=== PATIENT | female | born 1975 | race Caucasian/White ===

== ENCOUNTER 2024-11-06 09:36 | Outpatient (AMB) | payer BC, SELFPAY ==
--- NOTE | 2024-11-06 09:54 | MHC.OFFVIS ---
Vital Signs 11/06/24 09:58 Height 5 ft 4.17 in Weight 126 lb 8.725 oz BMI 21.6 BP 138/78 Blood Pressure Location Rt brachial Position Sitting Pulse 91 Pulse Source Pulse Oximeter Pulse Oximetry (%) 96 Oxygen Delivery Method Room Air Intake Visit Reasons: Graves disease-ok per Intake Note: New patient externally referred by PCP for Graves Disease. Bottom Precipitator Operator Required: No Accompanied by: Self / Same As Patient Allergies Sulfa (Sulfonamide Antibiotics) Allergy (Unknown, Verified 11/06/24 09:58) SOB, Rash Penicillins Allergy (Verified 11/06/24 09:58) Anaphylaxis morphine Adverse Reaction (Unknown, Verified 11/06/24 09:58) Unknown esomeprazole (From Nexium) Adverse Reaction (Verified 11/06/24 09:58) muscle weakness Erythromycin Adverse Reaction (Uncoded 11/06/24 09:58) GI symptoms Medication List - Last Reconciled 11/06/24 by Jose Ngo MD levothyroxine (Synthroid) 125 mcg PO DAILY norethindrone-e.estradiol-iron 1 mg-10 mcg (24)/10 mcg (2) (Lo Loestrin Fe) 1 tab PO DAILY rimegepant (Nurtec ODT) mg PO trazodone 50 mg PO BEDTIME HPI Comments Details: The patient is a 49-year-old female presenting with concerns of ?recurrent Graves' disease symptoms, hypertension, and unexplained weight loss. The patient reports a history of Graves' disease, with symptoms suggestive of recurrence, including eye pressure and twitching. She has not seen an structural metal fabricator apprentice yet but is considering it due to persistent symptoms. The patient has experienced fluctuating blood pressure readings, with recent measurements as high as 171/105 mmHg on the right arm and 155/104 mmHg on the left arm. She notes that these episodes are often associated with stress and palpitations. The patient has noticed significant weight loss over the past few months, which she attributes to stress and changes in her lifestyle. She denies any intentional dietary changes or increased physical activity that could account for the weight loss. The patient has a history of autoimmune disease and is concerned about the possibility of other autoimmune conditions contributing to her symptoms. She is currently taking Synthroid for thyroid management and has a history of endometriosis, managed with control pills. The patient reports frequent migraines, which have changed in character over the last five months, prompting further investigation. - Synthroid: For thyroid management, compliance not explicitly discussed - control pills (Lutera): For endometriosis management, compliance not explicitly discussed - Trazodone: As needed, compliance not explicitly discussed [facility] Medical History (Updated 11/06/24 @ 09:56 by Jose Ngo MD) Postprocedural hypothyroidism Surgical History (Updated 11/06/24 @ 09:59 by LUIS Perez) Hx of section Hx of appendectomy Hx of cholecystectomy Family History Mother Asthma Type 2 diabetes mellitus Hyperlipidemia History of hypertension Rheumatoid arthritis Son Behcet's disease Social History Alcohol intake: current Alcohol intake frequency: holidays/special occasions only Patient Tobacco Use Status: Never used Tobacco Physical Exam Vital Signs: Last Vital Signs Pulse 91 11/06/24 09:58 BP 138/78 11/06/24 09:58 Pulse Ox 96 11/06/24 09:58 Oxygen Delivery Method Room Air 11/06/24 09:58 BMI result Body Mass Index 21.6 Const Other: Thyroid gland is decrease in size weighs about 5 g . There are no thyroid nodules palpated. Absence of proptosis or exophthalmos Assessment & Plan Assessment & Plan (1) Postprocedural hypothyroidism: Code(s): E89.0 - Postprocedural hypothyroidism Category: Medical Plan: 1. Graves' disease The patient reports symptoms suggestive of recurrence, including eye pressure and twitching. This does not appear to be the evidence on physical examination of recurrence of Graves disease. Patient is clinically and biochemically euthyroid 2. Hypertension The patient experiences fluctuating blood pressure readings, often associated with stress and palpitations. Further evaluation for pheochromocytoma and other adrenal disorders is planned, including testing for plasma metanephrines and normetanephrines. 3. Pheochromocytoma Given the symptoms of palpitations, weight loss, and fluctuating blood pressure, testing for pheochromocytoma is planned to rule out this condition. 4. [place]'s disease Testing for adrenal insufficiency is considered, including morning cortisol levels, although the patient is on control, which may affect results. We will also check a calcium and magnesium level as patient is complaining of twitching. Lastly, she just had a cardiology consultation with Dr. Van Dang The patient had an opportunity to ask questions regarding treatment plan. The patient expressed understanding and agreement with the above treatment plan. Patient was informed and verbally consented to the use of an ambient scribe for clinic note documentation during this visit. Orders: Orders Cortisol Random Today R00.2 - Palpitations Albumin Level Today R00.2 - Palpitations Aldosterone Today I10 - Essential (primary) hypertension Metanephrines, Plasma Today R00.2 - Palpitations Magnesium Today R00.2 - Palpitations Calcium Today R00.2 - Palpitations Renin Today I10 - Essential (primary) hypertension Coding Level of Care Code New Pt Level 4 (36055) Diagnoses Postprocedural hypothyroidism E89.0
[2024-11-06 09:58] VITALS: BP 138/78; PULSE 91; O2SAT 96; BMI 21.6
--- OUTSIDE RECORDS SUMMARY | 2024-11-06 10:23 | XMS_ITS | Clinical Summary ---
Author Organization [facility] Address [address] [place] [address] Care Team Providers Care Fibrous Wallboard Inspector Name Role Phone Armin Lozada MD Primary Care Provider [phone] Allergies Active Allergy Reactions Criticality Noted Date Comments Erythromycin GI Intolerance/Nausea/Vomiting Low Penicillins Anaphylaxis High 07/04/2022 Sulfa Antibiotics Anaphylaxis High 07/04/2022 Medications No known medications Social History Tobacco Use Types Packs/Day Years Used Date Smoking Tobacco: Never Assessed Comments Unknown Sex and Gender Information Value Date Recorded Sex Assigned at Female 07/04/2022 8:46 AM EST Legal Sex Female 8:45 AM EST Gender Identity Female 07/04/2022 8:46 AM EST Sexual Orientation Choose not to disclose 2022 8:46 AM EST Last Filed Vital Signs Vital Sign Reading Time Taken Comments Blood Pressure 143/101 07/04/2022 9:20 AM EST Pulse 90 07/04/2022 9:20 AM EST Temperature 36.8 C (98.3 F) 07/04/2022 9:20 AM EST Respiratory Rate 18 07/04/2022 9:20 AM EST Oxygen Saturation 99% 07/04/2022 9:20 AM EST Inhaled Oxygen Concentration - - Weight - - Height - - Body Mass Index - - Plan of Treatment Health Maintenance Due Date Last Done Comments Hepatitis C Virus Screening 1976 HIV Screening 02/09/1989 DTaP/Tdap/Td Vaccines (1 - Tdap) 02/09/1995 Hepatitis B Vaccines (1 of 3 - 19+ 3-dose series) 02/09/1995 Pap Smear (Ages 21-65) 02/09/1997 Mammogram 2016 Colonoscopy 02/09/2021 COVID-19 Vaccine (2023-2 5 season) 2024 09/21/2020, 08/31/2020 Influenza Vaccine 12/07/2024 03/27/2022 Pneumococcal Vaccine: Pediatric (0-5 Years) and At-Risk Patients (6 to 49 Years) Aged Out No longer eligible b ased on patient's age to complete this topic Insurance [employer] [facility] - O Care Teams Fibrous Wallboard Inspector Relationship Specialty Start Date End Date Armin Lozada MD [address] [place] [id number] PCP - General Internal Medicine 06/09/22
== END 2024-11-06 11:04 | disposition home or self-care (01) ==
LOC: HO.ENCR 09:37
PROVIDERS: PCP Internal Medicine; Visit Provider Internal Medicine Endocrinology, Diabetes & Metabolism
DX: E89.0 Postprocedural hypothyroidism (principal)
CPT/HCPCS: 99204

== ENCOUNTER 2024-12-18 09:44 | Outpatient (AMB) | payer BC, SELFPAY ==
--- NOTE | 2024-12-18 09:49 | A.OFFVIS_ITS ---
Vital Signs 12/18/24 09:52 Height 5 ft 4.17 in Weight 126 lb 12.253 oz BMI 21.6 BP 132/88 Blood Pressure Location Rt brachial Position Sitting Pulse 95 Pulse Source Pulse Oximeter Pulse Oximetry (%) 96 Oxygen Delivery Method Room Air Intake Visit Reasons: Graves disease-ok per Intake Note: Patient present today for Grave's Disease follow up. Psychiatric Cns Required: No Accompanied by: Self / Same As Patient Allergies Sulfa (Sulfonamide Antibiotics) Allergy (Unknown, Verified 12/18/24 09:52) SOB, Rash Penicillins Allergy (Verified 12/18/24 09:52) Anaphylaxis morphine Adverse Reaction (Unknown, Verified 12/18/24 09:52) Unknown esomeprazole (From Nexium) Adverse Reaction (Verified 12/18/24 09:52) muscle weakness Erythromycin Adverse Reaction (Uncoded 12/18/24 09:52) GI symptoms Medication List - Last Reconciled 12/18/24 by Jose Ngo MD levothyroxine (Synthroid) 125 mcg PO DAILY norethindrone-e.estradiol-iron 1 mg-10 mcg (24)/10 mcg (2) (Lo Loestrin Fe) 1 tab PO DAILY rimegepant (Nurtec ODT) mg PO trazodone 50 mg PO BEDTIME HPI Comments Details: The patient is a 49-year-old female presenting with concerns of ?recurrent Graves' disease symptoms, hypertension, and unexplained weight loss. The patient reports a history of Graves' disease, with symptoms suggestive of recurrence, including eye pressure and twitching. She has not seen an extension supervisor yet but is considering it due to persistent symptoms. The patient has experienced fluctuating blood pressure readings, with recent measurements as high as 171/105 mmHg on the right arm and 155/104 mmHg on the left arm. She notes that these episodes are often associated with stress and palpitations. The patient has noticed significant weight loss over the past few months, which she attributes to stress and changes in her lifestyle. She denies any intentional dietary changes or increased physical activity that could account for the weight loss. The patient has a history of autoimmune disease and is concerned about the possibility of other autoimmune conditions contributing to her symptoms. She is currently taking Synthroid for thyroid management and has a history of endometriosis, managed with control pills. The patient reports frequent migraines, which have changed in character over the last five months, prompting further investigation. - Synthroid: For thyroid management, compliance not explicitly discussed - control pills (Lutera): For endometriosis management, compliance not explicitly discussed - Trazodone: As needed, compliance not explicitly discussed Recent labs reported at [facility] ([facility]) were normal for thyroid function studies and plasma metanephrines, renin and aldosterone levels were normal as was magnesium and calcium. [facility] Medical History (Updated 11/06/24 @ 09:56 by Jose Ngo MD) Postprocedural hypothyroidism Surgical History Hx of section Hx of appendectomy Hx of cholecystectomy Family History Mother Asthma Type 2 diabetes mellitus Hyperlipidemia History of hypertension Rheumatoid arthritis Son Behcet's disease Social History Alcohol intake: current Alcohol intake frequency: holidays/special occasions only Patient Tobacco Use Status: Never used Tobacco Physical Exam Vital Signs: Last Vital Signs Pulse 95 12/18/24 09:52 BP 132/88 12/18/24 09:52 Pulse Ox 96 12/18/24 09:52 Oxygen Delivery Method Room Air 12/18/24 09:52 BMI result Body Mass Index 21.6 Assessment & Plan Assessment & Plan (1) Postprocedural hypothyroidism: Code(s): E89.0 - Postprocedural hypothyroidism Category: Medical Plan: 1. Graves' disease The patient reports symptoms suggestive of recurrence, including eye pressure and twitching. This does not appear to be the evidence on physical examination of recurrence of Graves disease. Patient is clinically and biochemically euthyroid on 125 mcg levothyroxine Plan is to continue the current regimen 2. Hypertension Workup for secondary hypertension was negative from endocrine perspective. The patient continues to have palpitations and tachycardia unexplained and I recommended that she see a diesel automotive technician for follow up Dr. Van Dang in [facility]. She also complains of the symptoms after eating and I placed a Marciano 3+ sensor on her to see if the symptoms are related to glucose levels. Coding Level of Care Code Est Pt Level 3 (27768) Diagnoses Postprocedural hypothyroidism E89.0
[2024-12-18 09:52] VITALS: BP 132/88; PULSE 95; O2SAT 96; BMI 21.6
--- OUTSIDE RECORDS SUMMARY | 2024-12-18 10:28 | XMS_ITS | Clinical Summary ---
Author Organization [facility] Address [address] [place] [address] Care Team Providers Care Cargo Service Supervisor Name Role Phone Armin Lozada MD Primary Care Provider [phone] Allergies Active Allergy Reactions Criticality Noted Date [...] patient's age to complete this topic [facility] [employer] [facility] - [facility] Care Teams Cargo Service Supervisor Relationship Specialty Start Date End Date Armin Lozada MD [address] [place] [address] PCP - General Internal Medicine 06/09/22
--- OUTSIDE RECORDS SUMMARY | 2024-12-18 10:28 | XMS_ITS ---
Author Name [facility] Organization Unknown Allergies Allergen Reaction Severity Comment Documented Date Source Statu s SULFA ANTIBIOTICS ANAPHYLAXIS Severe 07/04/2022 [facility] active ERYTHROMYCIN GI INTOLERANCE/NAUSEA/V OMITING Mild [facility] PENICILLINS ANAPHYLAXIS Severe [facility] Problems Problem Status Onset Date Problem Type Date of Resoluti on Source Sore throat active EncounterDiagnosisAct [facility] Encounters Encounter Type Encounter Reason Primary Diagnosis Location Date Ambulatory Acute pharyngiti s, unspecified [facility] 07/04/2022 Care Team Organization Name Specialty Phone Email Start Date End Da te [facility] ARMIN SHAIKH Primary Care 07/04/2022 07/04/19 23 [facility] Armin Shaikh Primary Care 07/04/2022
== END 2024-12-18 10:48 | disposition home or self-care (01) ==
LOC: HO.ENCR 09:44
PROVIDERS: PCP Internal Medicine; Visit Provider Internal Medicine Endocrinology, Diabetes & Metabolism
DX: E89.0 Postprocedural hypothyroidism (principal)
CPT/HCPCS: 99213